=== PATIENT | male | born 1995 | race Caucasian/White ===

== ENCOUNTER → 2016-10-19 | Outpatient (CLI) | payer BC ==
--- NOTE | 2016-10-20 16:21 | XCELERA REPORT ---
[address] [address] Lower Extremity Venous Evaluation Name: YAHIR LEES Age: 21 yrs Gender: Male : 1995 Patient Status: Outpatient Patient Location: Study Date: 10/19/2016 06:27 PM Procedure: Color flow and duplex imaging of the veins of the right lower extremity as well as the left Common Femoral vein. Reason For Study: RLE PAIN Ordering Physician: MOIZ CARTER PA-C Performed By: Lori Magaña Right Sided Venous Evaluation Normal vessel filling wall to wall, compression and augmentation as well as Colour flow down to the infrageniculate veins. Left Sided Venous Evaluation The left common femoral vein is fully compressible. Spontaneous and phasic flow is present in the left common femoral vein. Interpretation Summary No duplex evidence of DVT or obstruction in the right lower extremity nor in the left Common Femoral vein. : MOIZ CARTER PA-C > [place]
== END ==
LOC: SP 17:19
PROVIDERS: ATTEND Physician Assistant
DX: M79.604 Pain in right leg (principal)
CPT/HCPCS: 93971

== ENCOUNTER 2017-12-22 15:43 | Emergency (ER) | payer SELFPAY ==
[2017-12-22 15:50] VITALS: BP 131/67
[2017-12-22] MEDS ORDERED: LIDOCAINE 1% INJ-PF (10 MG/ML) 30 ML SDV INJ ONE (16:02)
[2017-12-22] MEDS ORDERED: HYDROCODONE/ACETAMINOPHEN 5-325 MG TABLET PO ONE (16:03)
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
== END 2017-12-22 17:05 | disposition home or self-care (01) ==
LOC: ER 15:43
DX: S61.011A Laceration without foreign body of right thumb without damage to nail, initial encounter (principal); W25.XXXA Contact with sharp glass, initial encounter; Y93.89 Activity, other specified; F17.200 Nicotine dependence, unspecified, uncomplicated
CPT/HCPCS: 99283

== ENCOUNTER 2020-06-16 14:33 | Emergency (ER) | payer OTHER ==
[2020-06-16 15:04] VITALS: BP 141/65
[2020-06-16] MEDS ORDERED: AZITHROMYCIN 250 MG TABLET PO ONE (15:08)
[2020-06-16] MEDS ORDERED: LIDOCAINE 1% INJ-PF (10 MG/ML) 30 ML SDV INJ ONE (15:08)
[2020-06-16] MEDS ORDERED: CEFTRIAXONE INJ 250 MG VIAL IM ONE (15:08)
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
[2020-06-16 15:44] LABS: APPEARANCE,URINE CLEAR; BILIRUBIN,URINE NEGATIVE (NEGATIVE); COLOR,URINE YELLOW; GLUCOSE, URINE NEGATIVE (NEGATIVE); KETONES,URINE NEGATIVE (NEGATIVE); LEUKOCYTE ESTERASE,URINE NEGATIVE (NEGATIVE); NITRITE,URINE NEGATIVE (NEGATIVE); PROTEIN,URINE NEGATIVE (NEGATIVE); URINE SPECIFIC GRAVITY 1.004; UROBILINOGEN,URINE NEGATIVE mg/dL (<2.0)
[2020-06-16 17:26] LABS: CHLAM PCR NOT DETECTED (NOT DETECT)
== END 2020-06-16 16:19 | disposition home or self-care (01) ==
LOC: ER 14:33
DX: Z20.2 Contact with and (suspected) exposure to infections with a predominantly sexual mode of transmission (principal); F17.200 Nicotine dependence, unspecified, uncomplicated
CPT/HCPCS: 99284; 96372; 87086; 81001; 87491; 87591; J3490; J0696